=== PATIENT | male | born 1975 | race Caucasian/White ===

== ENCOUNTER → 2018-01-10 | Outpatient (CLI) | payer BC | LOC: M.CT 11:09 → M.LAB 11:30 → M.CT 13:00 | DX: R10.12 Left upper quadrant pain (principal); R19.7 Diarrhea, unspecified; R10.32 Left lower quadrant pain; R10.13 Epigastric pain ==

== ENCOUNTER → 2019-11-17 | Outpatient (CLI) | payer BC ==
--- NOTE | 2019-11-22 20:46 | SLEEP ---
[facility] [address] [place] [address] SLEEP STUDY REPORT Name: MOHANSTEVEN Rosa RÍOS Room: [facility]#: [id number] Admission: 11/17/19 Attend Phys: Litzy Baez Discharge: Date of : 79 Report #: [id number] THIS REPORT FOR: //name// CC: Oj Otero DO This study has been reviewed in its entirety by a board certified sleep specialist DATE OF SERVICE: 11/19/2019 SLEEP STUDY REFERRING PHYSICIAN: Oj Otero MD. The patient is 44 years old who weighs 256 pounds with a BMI of 35.7. The patient's [place] score was 9. The patient underwent home sleep study performed by [facility]. Total recording time was 284 minutes. During the night study, the patient had 34 obstructive apneas, no central or mixed apneas and 22 hypopneas. The patient's AHI was 12 per hour. Supine sleep was not recorded. Nocturnal oximetry study revealed an average oxygen saturation of 92% with the lowest of 83%. 35 minutes were spent in oxygen saturation of less than 90%. Mean heart rate was 72 beats per minute with a maximum of 106 beats per minute. IMPRESSION: 1. Mild obstructive sleep apnea at an AHI of 12 per hour. 2. Nocturnal hypoxia secondary to obstructive sleep apnea. RECOMMENDATIONS: 1. The patient has mild CASSIE. I would recommend weight loss as initial form of treatment. However, if the patient has comorbid conditions or is clinically symptomatic, then consider treatment with either CPAP versus oral appliance. 2. Once the patient is optimally treated, then follow up in 4-6 weeks to assess compliance with treatment and to document clinical improvement. 3. Avoid SLIP OPERATOR depressants. 4. Cautioned regarding driving until symptoms of sleep apnea resolve with the above recommendations. <ELECTRONICALLY SIGNED> By: Daryl Lizarraga MD 11/22/19 2046 [id number] a Lizarraga MD /nt
== END ==
LOC: M.SLEEPLAB 09-11 12:00
DX: G47.30 Sleep apnea, unspecified (principal); R06.83 Snoring; R53.83 Other fatigue

== ENCOUNTER → 2020-04-08 | Outpatient (CLI) | payer BC | LOC: M.LAB 08:09 | PROVIDERS: ATTEND Orthopaedic Surgery | DX: Z01.812 Encounter for preprocedural laboratory examination (principal); Z20.828 Contact with and (suspected) exposure to other viral communicable diseases ==